=== PATIENT | female | born 1965 | race Caucasian/White ===

== ENCOUNTER 2017-03-24 17:43 | Emergency (ER) | payer SELFPAY ==
[~2017-03-24] VITALS: Ht 152.4 cm; Wt 67.0 kg
[2017-03-24 17:51] VITALS: Ht 152.4 cm; Wt 67.0 kg
[2017-03-24] MEDS ORDERED: IBUP-1542 PO (18:38)
--- NOTE | 2017-03-24 18:43 | ERD ---
ER Documentation Chief Complaint Date/Time DATE: 03/24/17 TIME: 18:41 Chief Complaint CEILING FELL ON TOP OF HEAD, NO KO HPI This 52-year-old female presents today after having her ceiling fall on top of her while she was sleeping. She has abrasions on her right elbow and right foot. She denies any headache, neck pain, restricted range of motion weakness. She is able to ambulate without any deficits or weakness. Her tetanus is up- to-date per ROS All systems reviewed and are negative except as per history of present illness. Medications Home Meds Active Scripts Ibuprofen* (Motrin*) 600 Mg Tab, 600 MG PO Q6, #15 TAB Prov:PANDA WILLS MD 03/24/17 Physical Exam Vitals Vital Signs Date Time Temp Pulse Resp B/P Pulse Ox O2 Delivery O2 Flow Rate FiO2 03/24/17 17:51 98.1 78 20 127/78 99 Physical Exam Const: [] Alert, not ill-appearing per Head: Atraumatic Eyes: Normal Conjunctiva ENT: Normal External Ears, Nose and Mouth. Neck: Full range of motion..~ No meningismus. Neck nontender. Resp: Clear to auscultation bilaterally Cardio: Regular rate and rhythm, no murmurs Abd: Soft, non tender, non distended. Normal bowel sounds Skin: No petechiae or rashes. There is an abrasion on the lateral aspect of the right elbow. There is some superficial abrasions on the right foot as well. There is no bony tenderness or deformities. Back: No midline or flank tenderness Ext: No cyanosis, or edema patient appears to have full range of motion of extremities and is able to ambulate without any pain or discomfort. Neur: Awake and alert Psych: Normal Mood and Affect Procedures/MDM This patient had a significant fall on top of her while she was sleeping. She has abrasions on her right upper and right lower lower extremity. She denies any headache or neck pain. My suspicion for fracture or significant injury is low. Patient is able to ambulate without discomfort. Patient will be discharged home with a prescription of ibuprofen and further observation at home. The patient was stable with no new complaints during the ER course. Clinically, there is no current evidence to suggest meningitis, sepsis, acute abdomen, pneumonia, acute coronary syndrome, pulmonary embolism, or any other emergent condition appearing to require further evaluation or hospitalization. The patient should certainly return for any new or worsening symptoms per the aftercare instructions. They should otherwise follow-up with her primary care doctor for reevaluation this week. Departure Diagnosis: Primary Impression: Contusion Encounter type: initial encounter Contusion area: foot Laterality: right Qualified Code: S90.31XA - Contusion of right foot, initial encounter Additional Impression: Abrasion Patient Instructions: Abrasion, Contusion, Lower Extremity, Contusion, Upper Extremity, HEAD INJURY, No Wake-Up (Adult) Additional Instructions: Recheck for new or worsening symptoms or primary care doctor. PANDA WILLS MD Mar 24, 2017 18:43
== END 2017-03-24 19:17 | disposition home or self-care (01) ==
LOC: FTE 17:43
DX: S90.31XA Contusion of right foot, initial encounter (principal); S90.811A Abrasion, right foot, initial encounter; W20.8XXA Other cause of strike by thrown, projected or falling object, initial encounter; Y92.9 Unspecified place or not applicable
CPT/HCPCS: 99283